=== PATIENT | female | born 1935 | race Caucasian/White ===

== ENCOUNTER 2021-07-20 08:26 | Day surgery (SDC) | payer MEDICARE, MEDICAID ==
[~2021-07-20] VITALS: Ht 165.1 cm; Wt 65.8 kg
[2021-07-20] VITALS (8 sets, daily range): BP systolic 109–125; BP diastolic 48–57
[2021-07-20] MEDS ORDERED: LEVO50TA8 PO (08:53)
[2021-07-20] MEDS ORDERED: FURO40TA4 PO (08:55)
[2021-07-20] MEDS ORDERED: ATOR40TA72 PO (08:55)
[2021-07-20] MEDS ORDERED: ATEN50TA8 PO (08:55)
[2021-07-20] MEDS ORDERED: FLUT1AER PO (08:55)
[2021-07-20] MEDS ORDERED: AMLO5TAB16 PO (08:55)
[2021-07-20] MEDS ORDERED: FLUO-1 (08:55)
== END 2021-07-20 12:05 | disposition home or self-care (01) ==
LOC: SSTAY O 08:26
PROVIDERS: ATTEND Radiology Diagnostic Radiology
DX: J90 Pleural effusion, not elsewhere classified (principal); F10.20 Alcohol dependence, uncomplicated; J44.9 Chronic obstructive pulmonary disease, unspecified; I48.91 Unspecified atrial fibrillation; I10 Essential (primary) hypertension; F32.A Depression, unspecified; F41.9 Anxiety disorder, unspecified; E78.5 Hyperlipidemia, unspecified; E03.9 Hypothyroidism, unspecified; Z95.2 Presence of prosthetic heart valve; Z79.899 Other long term (current) drug therapy
CPT/HCPCS: 32555; 49083; 71045

== ENCOUNTER 2021-08-02 15:36 | Emergency (ER) | payer MEDICARE, MEDICAID ==
[~2021-08-02] VITALS: Ht 165.1 cm; Wt 63.6 kg
[~2021-08-02 15:36] MED LIST: AMLO5TAB16 PO; ATEN50TA8 PO; ATOR40TA72 PO; FLUO-1; FLUT1AER PO; FURO40TA4 PO; LEVO50TA8 PO
[2021-08-02 16:39] VITALS: BP 111/46
[2021-08-02 17:11] LABS: BASOPHILS % (AUTO) 0.5 % (0-1); EOSINOPHILS # (AUTO) 0.1 X10'3 (0-0.9); HEMATOCRIT 35.6 % (35.0-45.0); HEMOGLOBIN 11.8 g/dl (12.0-16.0); LYMPHOCYTES # (AUTO) 0.5 X10'3 (1.1-4.8); LYMPHOCYTES % (AUTO) 8.4 % (21-51); MEAN CORPUSCULAR HEMOGLOBIN 29.4 PG (27.0-31.0); MEAN CORPUSCULAR HGB CONC 33.1 g/dL (33.0-36.5); MEAN PLATELET VOLUME 6.4 FL (7.4-10.4); MONOCYTES # (AUTO) 0.5 X10'3 (0-0.9); MONOCYTES % (AUTO) 8.9 % (2-12); NEUTROPHILS # (AUTO) 4.8 X10'3 (1.8-7.7); NEUTROPHILS % (AUTO) 81.2 % (42-75); PLATELET COUNT 196 X10'3 (140-440); RED CELL DISTRIBUTION WIDTH 15.4 % (11.5-14.5)
[2021-08-02 17:27] LABS: ALANINE AMINOTRANSFERASE 9 U/L (12-78); ALBUMIN 3.2 G/DL (3.4-5.0); ALBUMIN/GLOBULIN RATIO 0.7 (1.1-1.5); ALKALINE PHOSPHATASE 88 IU/L (46-116); ANION GAP 6 (8-16); ASPARTATE AMINO TRANSFERASE 16 U/L (10-37); BLOOD UREA NITROGEN 10 MG/DL (7-18); BUN/CREATININE RATIO 10.8 (6.6-38.0); CALCIUM 9.3 MG/DL (8.5-10.1); CHLORIDE 95 MMOL/L (99-107); CREATININE 0.93 MG/DL (0.40-0.90); GLUCOSE 110 MG/DL (70-104); POTASSIUM 3.5 MMOL/L (3.5-5.1); SODIUM 132 MMOL/L (135-145); TOTAL CARBON DIOXIDE 30.8 MMOL/L (24-32); TOTAL PROTEIN 7.6 G/DL (6.4-8.2); eGFR 57 ML/MIN
--- NOTE | 2021-08-02 20:17 | NUR ---
PT TOLD ER REGISTRATION SHE WAS LEAVING AND THAT SHE WAS GOING TO SEE HER DOCTOR ON SATURDAY.
== END 2021-08-02 20:19 | disposition left against medical advice (07) ==
LOC: ER 15:36
DX: J90 Pleural effusion, not elsewhere classified (principal); J44.9 Chronic obstructive pulmonary disease, unspecified; Z79.899 Other long term (current) drug therapy
CPT/HCPCS: 36415; 71045; 80053; 85025; 93005; 99285

== ENCOUNTER 2021-08-04 09:12 | Day surgery (SDC) | payer MEDICARE, MEDICAID ==
[2021-08-04] VITALS (8 sets, daily range): BP systolic 101–135; BP diastolic 51–78
[~2021-08-04] VITALS: Ht 167.6 cm; Wt 65.8 kg
[2021-08-04] MEDS ORDERED: LIDOcaine 1%/PF 5ML 10 MG/ML VIAL SQ ONE ×2 (09:45→09:55)
[2021-08-04] MEDS ORDERED: albumin 25% 100mL bottle x 1 IV PRN (09:50)
[2021-08-04] MEDS ORDERED: acetaminophen 325mg tablet PO PRN (11:35)
== END 2021-08-04 12:40 | disposition home or self-care (01) ==
LOC: SSTAY O 09:12
PROVIDERS: ATTEND Radiology Vascular & Interventional Radiology
DX: J90 Pleural effusion, not elsewhere classified (principal); J44.9 Chronic obstructive pulmonary disease, unspecified; F10.20 Alcohol dependence, uncomplicated; I10 Essential (primary) hypertension; F32.A Depression, unspecified; F41.9 Anxiety disorder, unspecified; E78.5 Hyperlipidemia, unspecified; E03.9 Hypothyroidism, unspecified; K74.60 Unspecified cirrhosis of liver; I48.91 Unspecified atrial fibrillation; Z99.81 Dependence on supplemental oxygen; Z79.01 Long term (current) use of anticoagulants; Z79.899 Other long term (current) drug therapy; Z95.2 Presence of prosthetic heart valve; Z72.89 Other problems related to lifestyle; Z98.890 Other specified postprocedural states
CPT/HCPCS: 32555; 71045; J3490

== ENCOUNTER 2021-09-26 07:29 | Day surgery (SDC) | payer MEDICARE, MEDICAID ==
[~2021-09-26] VITALS: Ht 165.1 cm; Wt 64.4 kg
[2021-09-26] VITALS (16 sets, daily range): BP systolic 98–130; BP diastolic 47–85
[~2021-09-26 07:29] MED LIST changes: +LIDOcaine 1% 30ml preserv. free vial SQ STA
[2021-09-26] MEDS ORDERED: albumin 25% 100mL bottle x 1 IV PRN (07:55)
[2021-09-26] MEDS ORDERED: Lorazepam PO (08:00)
[2021-09-26] MEDS ORDERED: LIDOcaine 1%/PF 5ML 10 MG/ML VIAL SQ ONE (08:25)
--- NOTE | 2021-09-26 09:40 | NUR ---
Dr. Champion reviewed CXR and new orders for labs, type and screen, Bilateral 18G IVs. Patient to be transport to IR for pulmonary angiogram.
[2021-09-26] MEDS ORDERED: fentaNYL/PF 50MCG/1 ML 2ML syringe ONE (09:42)
[2021-09-26] MEDS ORDERED: heparin 1,000 UNITS/NS 500ml 500 ML ONE (09:42)
[2021-09-26] MEDS ORDERED: midazolam 1 mg/ML 2ml injection ONE (09:42)
[2021-09-26] MEDS ORDERED: iohexol 300 MG/1 ML 50ml polymer ONE ×3 (09:42→10:43)
[2021-09-26 10:01] LABS: BASOPHILS % (AUTO) 0.6 % (0-1); EOSINOPHILS # (AUTO) 0.1 X10'3 (0-0.9); EOSINOPHILS % (AUTO) 2.7 % (0-6); HEMATOCRIT 27.9 % (35.0-45.0); HEMOGLOBIN 9.5 g/dl (12.0-16.0); LYMPHOCYTES # (AUTO) 0.6 X10'3 (1.1-4.8); LYMPHOCYTES % (AUTO) 12.8 % (21-51); MEAN CORPUSCULAR HEMOGLOBIN 29.6 PG (27.0-31.0); MEAN CORPUSCULAR HGB CONC 33.9 g/dL (33.0-36.5); MEAN CORPUSCULAR VOLUME 87.2 FL (78-98); MEAN PLATELET VOLUME 6.3 FL (7.4-10.4); MONOCYTES # (AUTO) 0.4 X10'3 (0-0.9); MONOCYTES % (AUTO) 8.6 % (2-12); NEUTROPHILS # (AUTO) 3.8 X10'3 (1.8-7.7); NEUTROPHILS % (AUTO) 75.3 % (42-75); PLATELET COUNT 177 X10'3 (140-440); RED BLOOD COUNT 3.19 X10'6 (4.20-5.60); RED CELL DISTRIBUTION WIDTH 14.4 % (11.5-14.5); WHITE BLOOD COUNT 5.1 X10'3 (4.5-11.0)
[2021-09-26 10:13] LABS: APTT 31 SECONDS (22-32)
[2021-09-26 10:15] LABS: ALANINE AMINOTRANSFERASE 13 U/L (12-78); ALBUMIN 2.5 G/DL (3.4-5.0); ALBUMIN/GLOBULIN RATIO 0.6 (1.1-1.5); ALKALINE PHOSPHATASE 67 IU/L (46-116); ANION GAP 6 (8-16); ASPARTATE AMINO TRANSFERASE 15 U/L (10-37); BILIRUBIN,TOTAL 0.5 MG/DL (0.1-1.0); BLOOD UREA NITROGEN 15 MG/DL (7-18); CALCIUM 8.8 MG/DL (8.5-10.1); CHLORIDE 102 MMOL/L (99-107); CREATININE 0.88 MG/DL (0.40-0.90); GLUCOSE 91 MG/DL (70-104); POTASSIUM 3.5 MMOL/L (3.5-5.1); SODIUM 136 MMOL/L (135-145); TOTAL CARBON DIOXIDE 28.5 MMOL/L (24-32); TOTAL PROTEIN 6.5 G/DL (6.4-8.2); eGFR 61 ML/MIN
[2021-09-26] MEDS ORDERED: diphenhydrAMINE 50 mg/ml inj ONE (10:45)
--- NOTE | 2021-09-26 11:15 | NUR ---
Bedside report received from ALBERTA Anderson from IR. Patient vital signs stable. Puncture site to right groin stable with dressing intact. No bleeding noted.
--- NOTE | 2021-09-26 15:08 | NUR ---
Report called to ALBERTA Wagner at [facility]. All questions answered. Patient will be transported at 1715.
[2021-09-26] MEDS ORDERED: acetaminophen 325mg tablet PO SCH (16:10)
== END 2021-09-26 18:35 ==
LOC: SSTAY O 07:29
PROVIDERS: ATTEND Preventive Medicine Aerospace Medicine
DX: J90 Pleural effusion, not elsewhere classified (principal); Z79.01 Long term (current) use of anticoagulants; J44.9 Chronic obstructive pulmonary disease, unspecified; F32.9 Major depressive disorder, single episode, unspecified; F41.9 Anxiety disorder, unspecified; K74.60 Unspecified cirrhosis of liver; E03.9 Hypothyroidism, unspecified; I48.91 Unspecified atrial fibrillation; Z95.4 Presence of other heart-valve replacement; Z98.890 Other specified postprocedural states; Z79.899 Other long term (current) drug therapy
CPT/HCPCS: 32555; 36160; 36415; 71045; 75625; 76937; 80053; 85025; 85610; 85730; 86885; 86900; 86901; 86920; 99152; 99153; A6258; C1760; C1769; C1894; G0269; J1200; J1644; J2250; J3010; J3490; J7030; J7040; Q9967; Z7610; A4615; A6213